=== PATIENT | female | born 1945 | race Asian ===

== ENCOUNTER 2018-09-22 06:48 | Emergency (ER) | payer MEDICARE, OTHER ==
[~2018-09-22] VITALS: Wt 49.0 kg
[2018-09-22] MEDS ORDERED: ONDANSETRON 4 MG INJ IV STA (07:10)
[2018-09-22] MEDS ORDERED: morphine 4 MG/ML VIAL IV STA ×2 (07:10→09:06)
--- NOTE | 2018-09-22 07:39 | ERD ---
ER Documentation Chief Complaint Chief Complaint LOWER ABD PAIN SINCE YESTERDAY. WITH NAUSEA NO VOMITING. NO DIARRHEA HPI This is a 73-year-old female presents for ablation of lower abdominal pain since yesterday. It is mainly localized to her right lower quadrant is described as sharp, it radiates to the left lower quadrant, she denies fever, she has nausea but no vomiting, she denies any urinary symptoms. She has a history of prior breast cancer, not currently on treatment, also history of hypertension. ROS All systems reviewed and are negative except as per history of present illness. Medications Home Meds Active Scripts Ondansetron (Ondansetron Odt) 8 Mg Tab.rapdis, 8 MG PO Q6H PRN for NAUSEA AND/OR VOMITING, #10 TAB Prov:LAKSHMI LOPEZ MD 09/22/18 Hydrocodone/Acetaminophen ([place] 5-325 Tablet) 1 Each Tablet, 1 TAB PO Q6H PRN for PAIN, #7 TAB Prov:LAKSHMI LOPEZ MD 09/22/18 Allergies Allergies: Coded Allergies: No Known Allergy (Unverified , 09/22/18) FmHx Family History: No diabetes Physical Exam Vitals Vital Signs Date Temp Pulse Resp B/P (MAP) Pulse Ox O2 O2 Flow FiO2 Time Delivery Rate 09/22/18 98.5 61 17 135/80 100 Room Air 10:19 (98) 09/22/18 98.5 67 20 171/75 98 06:56 (107) Physical Exam Const: Well-developed, well-nourished elderly appearing female Head: Atraumatic Eyes: Normal Conjunctiva ENT: Normal External Ears, Nose and Mouth. Neck: Full range of motion. No meningismus. Resp: Clear to auscultation bilaterally Cardio: Regular rate and rhythm, no murmurs Abd: Soft, non distended, there is right lower quadrant tenderness, there is no rebound or guarding. Normal bowel sounds Skin: No petechiae or rashes Back: No midline or flank tenderness Ext: No cyanosis, or edema Neur: Awake and alert Psych: Normal Mood and Affect Result Diagram: 09/22/18 0717 09/22/18 0717 Results 24 hrs Laboratory Tests Test 09/22/18 07:17 White Blood Count 7.1 10^3/ul Red Blood Count 4.36 10^6/ul Hemoglobin 13.1 g/dl Hematocrit 38.6 % Mean Corpuscular Volume 88.5 fl Mean Corpuscular Hemoglobin 30.0 pg Mean Corpuscular Hemoglobin Concent 33.9 g/dl Red Cell Distribution Width 12.4 % Platelet Count 291 10^3/UL Mean Platelet Volume 8.4 fl Immature Granulocytes % 0.300 % Neutrophils % 54.8 % Lymphocytes % 29.4 % Monocytes % 8.7 % Eosinophils % 6.2 % Basophils % 0.6 % Nucleated Red Blood Cells % 0.0 /100WBC Immature Granulocytes # 0.020 10^3/ul Neutrophils # 3.9 10^3/ul Lymphocytes # 2.1 10^3/ul Monocytes # 0.6 10^3/ul Eosinophils # 0.4 10^3/ul Basophils # 0.0 10^3/ul Nucleated Red Blood Cells # 0.0 10^3/ul Urine Color YELLOW Urine Clarity CLEAR Urine pH 6.0 Urine Specific [place] 1.014 Urine Ketones NEGATIVE mg/dL Urine Nitrite NEGATIVE mg/dL Urine Bilirubin NEGATIVE mg/dL Urine Urobilinogen NEGATIVE mg/dL Urine Leukocyte Esterase 1+ [place]/ul Urine Microscopic RBC 5 /HPF Urine Microscopic WBC 2 /HPF Urine Squamous Epithelial Cells FEW /HPF Urine Bacteria FEW /HPF Urine Mucus FEW /HPF Urine Hemoglobin 2+ mg/dL Urine Glucose NEGATIVE mg/dL Urine Total Protein NEGATIVE mg/dl Sodium Level 138 mmol/L Potassium Level 3.7 mmol/L Chloride Level 102 mmol/L Carbon Dioxide Level 25 mmol/L Anion Gap 11 Blood Urea Nitrogen 14 mg/dl Creatinine 0.64 mg/dl Est Glomerular Filtrat Rate mL/min mL/min Glucose Level 112 mg/dl Calcium Level 9.3 mg/dl Total Bilirubin 0.8 mg/dl Direct Bilirubin 0.00 mg/dl Indirect Bilirubin 0.8 mg/dl Aspartate Amino Transf (AST/SGOT) 32 IU/L Alanine Aminotransferase (ALT/SGPT) 15 IU/L Alkaline Phosphatase 47 IU/L Troponin I < 0.012 ng/ml Total Protein 8.1 g/dl Albumin 4.5 g/dl Globulin 3.60 g/dl Albumin/Globulin Ratio 1.25 Lipase 137 U/L Current Medications Medications Dose Sig/Naomi Start Time Status Last (Trade) Ordered Route PRN Stop Time Admin Dose Reason Admin Morphine 4 mg ONCE STAT 09/22/18 DC 09/22/18 Sulfate IV 07:10 09/22/18 07:28 (morphine) 07:12 Ondansetron 4 mg ONCE STAT 09/22/18 DC 09/22/18 HCl (Zofran IV 07:10 09/22/18 07:27 Inj) 07:12 10 mg ONCE ONCE 09/22/18 DC 09/22/18 Metoclopramid IV 09:00 09/22/18 09:25 e HCl 09:09 (Reglan) Morphine 4 mg ONCE STAT 09/22/18 DC 09/22/18 Sulfate IV 09:06 09/22/18 09:24 (morphine) 09:09 Procedures/MDM This is a 73-year-old female presents for abdominal pain. She had notable right lower quadrant tenderness, she is given pain control with morphine and Zofran, plan is for CT abdomen pelvis, and labs to evaluate for intra-abdominal pathology. Patient CT abdomen pelvis returned negative for acute findings, otherwise labs are unremarkable with no signs of infection, after the patient admission for observation, she felt better and preferred to go home, given prescription for Zofran and [place] at discharge she was in no distress. Departure Diagnosis: Primary Impression: Abdominal pain Abdominal location: unspecified location Qualified Codes: R10.9 - Unspecified abdominal pain Condition: LAKSHMI Mendoza MD Sep 22, 2018 07:39
[2018-09-22] MEDS ORDERED: METOCLOPRAMIDE 10 MG INJ IV ONE (09:00)
[2018-09-22] MEDS ORDERED: HYDR-4011 PO (09:22)
[2018-09-22] MEDS ORDERED: ONDA8TAB14 PO (09:22)
[2018-09-22 10:19] VITALS: BP 135/80; PULSE 61; RESP 17
== END 2018-09-22 10:20 | disposition home or self-care (01) ==
LOC: E/R 06:48
DX: R10.31 Right lower quadrant pain (principal); I10 Essential (primary) hypertension; R11.0 Nausea; Z85.3 Personal history of malignant neoplasm of breast
CPT/HCPCS: 36415; 71045; 74176; 80053; 81001; 83690; 84484; 85025; 93005; 96374; 96375; 96376; 99285; J2270; J2405; J2765